=== PATIENT | male | born 1980 | race Caucasian/White ===

== ENCOUNTER → 2017-12-01 | Emergency (ER) | payer OTHER ==
[2017-12-01 17:02] VITALS: BMI 29.2
[2017-12-01 17:25] VITALS: BP 129/76; RESP 18; TEMP 98.5; O2SAT 98
--- NOTE | 2017-12-01 19:11 | ED PDOC ---
Arrival/HPI - General Chief Complaint: Upper Extremity Problem/Injury Time Seen by Provider: 12/01/17 17:57 Historian: Patient - History of Present Illness Narrative History of Present Illness (Text): 12/01/17 19:09 37-year-old male presents today with left hand pain and swelling. Patient states approximately one hour prior to arrival he tried to inject heroin into the dorsal aspect of his left hand. He claims to have injected approximately 30 mL into the hand and states immediately the hand swelled up. Patient states the incident occurred just prior to arrival. Patient states pain has been gradually increasing and swelling has been gradually increasing over the past hour. Patient denies numbness in the extremities. He is complaining of a tightness in the hand with limited flexion of the hand due to pressure. Patient states states his hand elevated the pain and feeling of swollen hand is greatly improved. patient denies fevers or chills. Patient denies pain in the forearm. No other complaints Past Medical History - Provider Review Nursing Documentation Reviewed: Yes - Travel History Have you recently traveled outside [place] w/in the past 3 mons?: No - Infectious Disease Hx of Infectious Diseases: None - Tetanus Immunization Tetanus Immunization: Unknown - Cardiac Hx Cardiac Disorders: No - Pulmonary Hx Respiratory Disorders: No Other/Comment: smoking - Neurological Hx Neurological Disorder: No - HEENT Hx HEENT Disorder: No - Renal Hx Renal Disorder: No - Endocrine/Metabolic Hx Endocrine Disorders: No - Hematological/Oncological Hx Blood Disorders: No - Integumentary Hx Cellulitis: Yes - Musculoskeletal/Rheumatological Hx Falls: No - Gastrointestinal Hx Gastrointestinal Disorders: No - Genitourinary/Gynecological Hx Genitourinary Disorders: No - Psychiatric Hx Psychophysiologic Disorder: No Hx Substance Use: Yes - Anesthesia Hx Anesthesia: No Hx Anesthesia Reactions: No Hx Malignant Hyperthermia: No Family/Social History - Physician Review Nursing Documentation Reviewed: Yes Family/Social History: Unknown Family HX Smoking Status: Heavy Smoker > 10 Cigarettes Daily Hx Alcohol Use: No (DENIES) Hx Substance Use: Yes Substance used: heroin Allergies/Home Meds Allergies/Adverse Reactions: Allergies No Known Allergies Allergy (Verified 07/05/16 21:12) Home Medications: Home Meds Medication Instructions Recorded Confirmed No Known Home Med 07/04/16 07/04/16 Cephalexin [Keflex] 500 mg PO BID 07/08/16 07/08/16 Sulfamethoxazole/Trimethoprim 160 - 800 mg PO BID 07/08/16 07/08/16 [Bactrim DS Tab] Review of Systems - Review of Systems Constitutional: absent: Fatigue, Fevers Respiratory: absent: SOB, Cough Cardiovascular: absent: Chest Pain, Palpitations Gastrointestinal: absent: Abdominal Pain, Nausea, Vomiting Genitourinary Male: absent: Dysuria, Frequency, Hematuria Musculoskeletal: Arthralgias, Joint Swelling. absent: Back Pain, Neck Pain Skin: absent: Rash, Pruritis Neurological: absent: Headache, Dizziness Psychiatric: absent: Anxiety, Depression Physical Exam Vital Signs Reviewed: Yes Vital Signs Temp Pulse Resp BP Pulse Ox 12/01/17 17:11 98.5 F 96 H 18 129/76 98 Temperature: Afebrile Blood Pressure: Normal Pulse: Regular Respiratory Rate: Normal Appearance: Positive for: Well-Appearing, Non-Toxic, Comfortable Pain Distress: None Mental Status: Positive for: Alert and Oriented X 3 - Systems Exam Head: Present: Atraumatic Mouth: Present: Moist Mucous Membranes Neck: Present: Normal Range of Motion Respiratory/Chest: Present: Clear to Auscultation, Good Air Exchange. No: Respiratory Distress, Accessory Muscle Use Cardiovascular: Present: Regular Rate and Rhythm, Normal S1, S2. No: Murmurs Upper Extremity: Present: NORMAL PULSES, Tenderness (left hand; + edema noted to entire hand; no erythema; + distal pulses intact. cap refill <2. sensation intact to all fingers. ), Swelling, Neurovascularly Intact, Capillary Refill < 2s. No: Normal Inspection, Normal ROM, Erythema, Deformity Neurological: Present: GCS=15, Speech Normal, Motor Func Grossly Intact, Normal Sensory Function Skin: Present: Warm, Dry Psychiatric: Present: Alert, Oriented x 3 Medical Decision Making ED Course and Treatment: 12/01/17 19:12 37-year-old male with left hand pain and swelling status post extravasation of heroin into left hand. pt is non toxic. well appearing. comfortable. hand elevated, Ice applied. pt was seen and evaluated by dr. redd. [facility] cmp pt/ptt 12/01/17 19:[address] Murray surgeon; agrees to be on consult. will monitor patient for signs of developing compartment syndrome. case discussed with dr. Thuy Nelson; accepts observational status admission impression; hand swelling, IVDU admit observational status. 12/01/17 20:13 neurosurgical physician assistant; dr burleson at bedside. pt states that he does not want to stay in the hospital and that he will monitor the hand swelling at home and will return if symptoms worsen. I have discussed signs of compartment syndrome in depth with the patient and i stressed the importance for need to remain in the hospital for close evaluation and monitoring of his hand swelling. I have advised the patient of the risks of signing out against medical advise. I have advised the patient of risk of disability or worsening of symptoms including compartment syndrome and possible loss of limb. Pt states he doesn't want his to know why he is in the hospital and know that he relapsed. after a long talk with the patient in depth regarding need to remain the hospital the patient has agreed to stay. 12/01/17 20:36 I was made aware by nursing staff that the patient eloped from the ER. 12/01/17 20:40 i called patient and he said he " stepped out" but would return; impression; ELOPED - RAD Interpretation Radiology Orders: 12/01/17 19:08 HAND LEFT 3 VIEWS ROUTINE [RAD] Stat Disposition/Present on Arrival - Present on Arrival Any Indicators Present on Arrival: No History of DVT/PE: No History of Uncontrolled Diabetes: No Urinary Catheter: No History of Decub. Ulcer: No History Surgical Site Infection Following: None - Disposition Have Diagnosis and Disposition been Completed?: Yes Diagnosis: Hand swelling, IVDU (intravenous drug user) Disposition: ELOPEMENT - ER ONLY Disposition Time: 19:56 Patient Problems: Current Active Problems Problem Status Onset Hand swelling Acute IVDU (intravenous drug user) Acute Condition: UNKNOWN
[2017-12-01 20:58] VITALS: PULSE 94
--- NOTE | 2017-12-01 21:10 | CP.PCM.CON ---
History of Present Illness - History of Present Illness History of Present Illness: Surgery Consult: Dr. Murray Pt is a 37M with no significant PMHx who presented [place] [facility] [place] with Left hand swelling after heroin injection. Pt admits to daily IVDA with heroin. States that earlier today he tried to inject a vein in his L hand however missed & instead injected into the sub-q. Pt noticed that his hand was swollen/red & he decided to come to the ER. He states the needle was intact when he pulled it out , and denies similar incidents in the past. Pt admits to drug abuse with cocaine & heroin for the past 3 years, however states he only started injecting within the last year. He admits to 15-30 bags/day with occasional cocaine & marijuana use. In the ER, an X-ray of the Left hand was obtained which does not show any foreign bodies, air or fluid suggestive of collection/abscess. Surgery called to evaluate. Currently, pt is sitting comfortably in bed. States his swelling has gone down significantly & he is able to move his fingers without pain. Denies numbness or tingling, denies fevers, chills, chest pain or SOB. PMHx: IVDA PSHx: denies SocialHx: IVDA with heroin, cocaine, marijuana. Admits to occasional smoking/ EtOH NKDA Review of Systems - Review of Systems All systems: reviewed and no additional remarkable complaints except (as per HPI ) Past Patient History - Infectious Disease Hx of Infectious Diseases: None - Tetanus Immunizations Tetanus Immunization: Unknown - Past Medical History & Family History Past Medical History?: Yes - Past Social History Smoking Status: Heavy Smoker > 10 Cigarettes Daily Drugs: Cannabis, Cocaine, Other (Heroin ) - CARDIAC Hx Cardiac Disorders: No - PULMONARY Hx Respiratory Disorders: No Other/Comment: smoking - NEUROLOGICAL Hx Neurological Disorder: No - HEENT Hx HEENT Problems: No - RENAL Hx Chronic Kidney Disease: No - ENDOCRINE/METABOLIC Hx Endocrine Disorders: No - HEMATOLOGICAL/ONCOLOGICAL Hx Blood Disorders: No - MUSCULOSKELETAL/RHEUMATOLOGICAL Hx Falls: No - GASTROINTESTINAL Hx Gastrointestinal Disorders: No - GENITOURINARY/GYNECOLOGICAL Hx Genitourinary Disorders: No - PSYCHIATRIC Hx Psychophysiologic Disorder: No Hx Substance Use: Yes - SURGICAL HISTORY Hx Surgeries: No - ANESTHESIA Hx Anesthesia: No Hx Anesthesia Reactions: No Hx Malignant Hyperthermia: No Meds Allergies/Adverse Reactions: Allergies Allergy/AdvReac Type Severity Reaction Status Date / Time No Known Allergies Allergy Verified 07/05/16 21:12 Physical Exam - Constitutional Appears: Well, No Acute Distress - Head Exam Head Exam: ATRAUMATIC, NORMOCEPHALIC - Eye Exam Eye Exam: Normal appearance - ENT Exam ENT Exam: Mucous Membranes Moist - Respiratory Exam Respiratory Exam: NORMAL BREATHING PATTERN - Cardiovascular Exam Cardiovascular Exam: RRR - GI/Abdominal Exam GI & Abdominal Exam: Soft. absent: Tenderness - Extremities Exam Additional comments: Left hand with dorsal/volar swelling, some erythema noted. No active drainage or open wounds. 2+ Radial & ulnar pulses. Motor function intact in all fingers & wrist. Sensation intact. No crepitus or fluctuance noted. - Neurological Exam Neurological exam: Alert, Oriented x3 - Skin Skin Exam: Dry, Warm Results - Vital Signs Recent Vital Signs: Last Vital Signs Temp 98.5 F 12/01/17 17:11 Pulse 94 H 12/01/17 19:02 Resp 18 12/01/17 19:02 BP 129/76 12/01/17 17:11 Pulse Ox 98 12/01/17 19:02 - Imaging and Cardiology Left Hand X-ray Status: Image reviewed by me Assessment & Plan - Assessment and Plan (Free Text) Assessment: 37M with Left hand swelling/inflammation s/p missed IVD injection Plan: - no need for surgical intervention at this time - continue elevation of Left hand with ice packs - monitor pulses - low suspicion for necrotizing infection or compartment syndrome - d/w Dr. Murray
--- NOTE | 2017-12-02 10:02 | RAD ---
PROCEDURE: Left Hand Radiographs. HISTORY: swollen hand COMPARISON: None. FINDINGS: BONES: Normal. No fracture. JOINTS: Normal. No osteoarthritic changes. SOFT TISSUES: Normal. OTHER FINDINGS: None. IMPRESSION: Normal left hand radiographs.
== END | disposition left against medical advice (07) ==
LOC: ED 17:02 → UNDOADMOB 19:49 → ERH 19:49
DX: M79.89 Other specified soft tissue disorders (principal); F19.10 Other psychoactive substance abuse, uncomplicated

== ENCOUNTER 2018-09-11 15:08 | Emergency (ER) | payer MEDICAID, OTHER ==
[2018-09-11 15:16] VITALS: BMI 28.5
--- NOTE | 2018-09-11 15:19 | ED PDOC ---
Arrival/HPI - General Chief Complaint: Substance Abuse Historian: Patient, EMS - History of Present Illness Time/Duration: Prior to Arrival Symptom Course: Unchanged Severity Level: Moderate Associated Symptoms (Text): 09/11/18 15:16 Patient complains of a history of IV drug abuse with heroin. He states that he was in rehab last year but relapsed. He was tested for HIV in May of this year and was negative. He was released from nursing home on August 23 after a 2-month stay and relapsed. He states that he was using today and passed out somewhere in [place] and the people he was with called 911 and he was brought to the emergency department. He also complains of bilateral eye redness for the last several days. He has a very large inferior subconjunctival hemorrhage on the right and a much smaller subconjunctival hemorrhage inferiorly on the left. He denies any trauma. He reports that he is depressed and wants to talk to a counselor, though he denies suicidal or homicidal ideation. He denies any visual or auditory hallucinations. He is interested in trying rehabilitation again. Past Medical History - Provider Review Nursing Documentation Reviewed: Yes - Infectious Disease Hx of Infectious Diseases: None - Tetanus Immunization Tetanus Immunization: Unknown - Cardiac Hx Cardiac Disorders: No Hx Hypertension: No - Pulmonary Hx Tuberculosis: No - Neurological HX Cerebrovascular Accident: No Hx Seizures: No - HEENT Hx HEENT Disorder: No - Renal Hx Renal Disorder: No - Endocrine/Metabolic Hx Endocrine Disorders: No - Hematological/Oncological Hx Cancer: No - Integumentary Hx Dermatological Disorder: Yes Hx Cellulitis: Yes - Musculoskeletal/Rheumatological Hx Falls: No - Gastrointestinal Hx Gastrointestinal Disorders: No - Genitourinary/Gynecological Hx Sexually Transmitted Diseases: No - Psychiatric Hx Substance Use: Yes - Anesthesia Hx Anesthesia: No Hx Anesthesia Reactions: No Hx Malignant Hyperthermia: No Family/Social History - Physician Review Nursing Documentation Reviewed: Yes Family/Social History: Unknown Family HX Smoking Status: Heavy Smoker > 10 Cigarettes Daily Hx Alcohol Use: Yes Hx Substance Use: Yes Substance used: HEROIN - IVDA Allergies/Home Meds Allergies/Adverse Reactions: Allergies No Known Allergies Allergy (Verified 09/11/18 15:17) Home Medications: Home Meds Medication Instructions Recorded Confirmed No Known Home Med 12/04/17 09/11/18 Review of Systems - Physician Review All systems were reviewed & negative as marked: Yes - Review of Systems Constitutional: Fatigue. absent: Fevers Eyes: Other (Bilateral subconjunctival hemorrhage as above.). absent: Vision Changes, Photophobia, Eye Pain Respiratory: absent: SOB, Cough Cardiovascular: absent: Chest Pain, Palpitations Gastrointestinal: absent: Abdominal Pain, Diarrhea, Nausea, Vomiting Genitourinary Male: absent: Dysuria, Frequency, Hematuria Neurological: absent: Headache, Dizziness, Focal Weakness Physical Exam Temperature: Afebrile Blood Pressure: Normal Pulse: Regular Respiratory Rate: Normal Appearance: Positive for: Well-Appearing, Non-Toxic, Comfortable Pain Distress: None Mental Status: Positive for: Alert and Oriented X 3 - Systems Exam Head: Present: Atraumatic, Normocephalic. No: Tenderness, Contusion, Swelling, Ecchymosis, Abrasion, Laceration Pupils: Present: PERRL Extroacular Muscles: Present: EOMI Conjunctiva: Present: Other (Large right inferior subconjunctival hemorrhage. Small left inferior subconjunctival hemorrhage.) Mouth: Present: Moist Mucous Membranes Pharnyx: No: ERYTHEMA, EXUDATE, TONSILS ENLARGED Neck: Present: Normal Range of Motion Respiratory/Chest: Present: Clear to Auscultation, Good Air Exchange, Decreased Breath Sounds. No: Respiratory Distress, Accessory Muscle Use Cardiovascular: Present: Regular Rate and Rhythm, Normal S1, S2. No: Murmurs Abdomen: No: Tenderness, Distention, Peritoneal Signs, Rebound, Guarding Upper Extremity: Present: Normal Inspection. No: Cyanosis, Edema Lower Extremity: Present: Normal Inspection. No: Edema Neurological: Present: GCS=15, CN II-XII Intact, Speech Normal, Motor Func Grossly Intact, Normal Cerebellar Funct, Gait Normal Skin: Present: Warm, Dry, Normal Color. No: Rashes Psychiatric: Present: Alert, Oriented x 3, Normal Insight, Normal Concentration, Depressed Mood. No: Suicidal Ideation, Homicidal Ideation, Delusional, Hallucinations Medical Decision Making ED Course and Treatment: 09/11/18 15:30 EKG shows normal sinus rhythm rate approximately [address] or T wave changes. 09/11/18 16:24 Crisis has been called. 09/11/2018 16:35 Chest X-ray IMPRESSION: No active disease. Dictator: Faisal Kebede MD 04/27/19 17:21 Seen and evaluated by crisis. Offered a rehabilitation bed which is available at [facility] today. Patient is now refusing rehab. He states that he will kick the habit on his own. I had a long discussion with the patient along with the cable worker helper letting him know that I thought this was a mistake and he should take the rehab bed that is available today. He is adamantly refusing and will be discharged home. Follow-up with PMD. Follow-up in ER as needed. - RAD Interpretation Radiology Orders: 09/11/18 15:15 CHEST PORTABLE [RAD] Stat Chest one view shows no infiltrate effusion or cardiomegaly. Coat Operator Insulator: ED Physician Disposition/Present on Arrival - Present on Arrival Any Indicators Present on Arrival: No History of DVT/PE: No History of Uncontrolled Diabetes: No Urinary Catheter: No History of Decub. Ulcer: No History Surgical Site Infection Following: None - Disposition Have Diagnosis and Disposition been Completed?: Yes Diagnosis: Polysubstance abuse, Opioid use disorder, severe, dependence, Tobacco abuse, Subconjunctival hemorrhage of both eyes Disposition: HOME/ ROUTINE Disposition Time: 17:23 Patient Plan: Discharge Condition: FAIR Discharge Instructions (ExitCare): Quitting Smoking for Older Adults, Drug Abuse and Drug Addiction (DC), Polysubstance Abuse, Subconjunctival Hemorrhage Referrals: FAMILY PROVIDER,NO [Non-Staff] - Follow up with primary Forms: [employer] ([place]ian)
--- NOTE | 2018-09-11 15:44 | RAD ---
Date of service: 09/11/2018 HISTORY: crisis COMPARISON: Chest radiograph dated 07/02/2016. TECHNIQUE: 1 view obtained. FINDINGS: LUNGS: No active pulmonary disease. PLEURA: No significant pleural effusion identified, no pneumothorax apparent. CARDIOVASCULAR: No aortic atherosclerotic calcification present. Mediastinal silhouette stably enlarged OSSEOUS STRUCTURES: No significant abnormalities. VISUALIZED UPPER ABDOMEN: Normal. OTHER FINDINGS: None. IMPRESSION: No active disease.
[2018-09-11 16:10] LABS: BASO # 0.03 K/mm3 (0.0-2.0); BASO % 0.4 % (0.0-3.0); EOS # 0.2 (0.0-0.7); EOS % 2.4 % (1.5-5.0); HEMOGLOBIN 15.2 g/dL (14.0-18.0); LYMPH # 1.3 (1.2-3.4); LYMPH % 16.3 % (22.0-35.0); MEAN CELL VOLUME 88.6 fl (80.0-105.0); MEAN CORPUSCULAR HEMOGLOBIN 29.3 pg (25.0-35.0); MEAN CORPUSCULAR HGB CONC 33.1 g/dl (31.0-37.0); MEAN PLATELET VOLUME 11.7 fl (7.0-11.0); MONO # 0.4 (0.1-0.6); MONO % 4.4 % (1.0-6.0); RBC 5.18 10^6/uL (3.5-6.1); WHITE BLOOD COUNT 8.2 10^3/uL (4.5-11.0)
[2018-09-11 16:12] LABS: ACETAMINOPHEN < 10.0 ug/ml (10.0-20.0); SALICYLATE < 1 mg/dL (2.0-20.0)
[2018-09-11 16:14] LABS: BLOOD UREA NITROGEN 10 mg/dL (7-21); CALCIUM 8.6 mg/dL (8.4-10.5); GFR NON-AFRICAN AMERICAN > 60
[2018-09-11 16:21] LABS: ALB/GLOB RATIO 1.1 (1.1-1.8); ALBUMIN 4.2 g/dL (3.0-4.8); ALT/SGPT 21 U/L (7-56); AST/SGOT 58 U/L (17-59)
[2018-09-11 17:41] VITALS: BP 129/75; PULSE 79; RESP 19; TEMP 98; O2SAT 99
--- NOTE | 2018-09-12 10:13 | CARD ---
APPROVED REPORT Date of service: 09/11/2018 EKG Measurement Heart [id number] <Conclusion> Normal sinus rhythm Normal ECG
== END 2018-09-11 17:41 | disposition home or self-care (01) ==
LOC: ED 15:08
DX: F11.20 Opioid dependence, uncomplicated (principal); H11.33 Conjunctival hemorrhage, bilateral; F17.210 Nicotine dependence, cigarettes, uncomplicated